=== PATIENT | female | born 1990 | race Caucasian/White ===

== ENCOUNTER 2018-05-28 09:41 | Outpatient (CLI) | payer BC ==
--- NOTE | 2018-05-28 10:37 | RAD ---
CHEST 2 VIEWS: HISTORY: Cough. FINDINGS: No comparison. Cardiac silhouette and pulmonary vasculature are unremarkable. Mediastinum is midlin e. No confluent airspace consolidation, pneumothorax, or pleural fluid. IMPRESSION: No active cardiopulmonary abnormalities are demonstrated. POS: [facility]
== END 2018-05-28 09:42 | disposition home or self-care (01) ==
LOC: RAD-FRANK 09:41
PROVIDERS: ATTEND Nurse Practitioner Family
DX: R05 Cough (principal)
CPT/HCPCS: 71046